=== PATIENT | male | born 1940 | race Caucasian/White ===

== ENCOUNTER 2024-10-09 11:03 | Emergency (ER) | payer OTHER ==
[~2024-10-09] VITALS: Ht 180.3 cm; Wt 72.7 kg
[~2024-10-09 11:03] MED LIST: ALLOPURINOL; METF-370; [UNRECOGNIZED DRUG - OTHER]
[2024-10-09 11:07] VITALS: BP 124/71; PULSE 96; RESP 18; O2SAT 100
[2024-10-09] MEDS: CLINDAMYCIN HCL 150 MG CAP PO ONE (16:06)
[2024-10-09] MEDS: FLUCONAZOLE 100 MG TAB PO ONE (16:07)
[2024-10-09] MEDS: DexAMETHasone SOD PHOS 10MG/1ML VIAL INJ IM ONE (16:08)
--- NOTE | 2024-10-09 16:11 | ED.PDOC ---
History of Present Illness(SKN HPI Comments 84 y.o male presents to the ED for a chief complaint of a generalized rash associated with pruritus that started 4-5 days ago s/p exposure. Patient reports developing this rash s/p his 's grand daughter came back from a vacation trip out of the country. Patient has scabs to bilateral lower legs and erythema all around. Patient denies any fever, chills, bleeding or abnormal discharge from wound scab areas. Patient is a poor historian, unable to collect medical history at this time. States he will not stay for admission at this time but wants to be medicated for the rash and pruritus. Chief Complaint: Lower Extremity Time Seen by MD: 15:50 Primary Care Provider: NONE History of Present Illness: Nurses Notes, Medications, Allergies Allergies: Coded Allergies: Clindamycin (Verified Allergy, Intermediate, 03/25/11) Latex (Verified Allergy, Intermediate, 03/25/11) Home Meds Reported Medications [Gemfivrozol] No Conflict Check 03/25/11 Metformin Hydrochloride (Metformin Hcl) 500 Mg Tab 03/25/11 [Allipurinal] No Conflict Check 03/25/11 Information Source: Patient Mode of Arrival: EMS Severity: Moderate Timing: Days (4-5) Duration: Since onset Location: Generalized Mechanism: Spontaneous Onset Developed: Rash Object: None History of: None Associated Signs and Symptoms: Redness Past Medical History PAST MEDICAL HISTORY: Unknown Surgical History: Unknown Family History Family History: Unknown Social History Smoker: Non-Smoker Alcohol: Denies ETOH Use Drugs: Denies Drug Use Lives In: Home Constitutional: denies: chills, diaphoresis, fatigue, fever, malaise, sweats, weakness, others EENTM: denies: blurred vision, double vision, ear bleeding, ear discharge, ear drainage, ear pain, ear ringing, eye pain, eye redness, hearing loss, mouth pain, mouth swelling, nasal discharge, nose bleeding, nose congestion, nose pain, photophobia, tearing, throat pain, throat swelling, voice changes, others Respiratory: denies: cough, hemoptysis, orthopnea, SOB at rest, shortness of breath, SOB with excertion, stridor, wheezing, others Cardiovascular: denies: chest pain, dizzy spells, diaphoresis, Dyspnea on exertion, edema, irregular heart beat, left arm pain, lightheadedness, palpitations, PND, syncope, others Gastrointestinal: denies: abdomen distended, abdominal pain, blood streaked bowels, constipated, diarrhea, dysphagia, difficulty swallowing, hematemesis, melena, nausea, poor appetite, poor fluid intake, rectal bleeding, rectal pain, vomiting, others Genitourinary: denies: burning, dysuria, flank pain, frequency, hematuria, incontinence, penile discharge, penile sore, pain, testicle pain, testicle swelling, urgency, others Neurological: denies: dizziness, fainting, headache, left sided numbness, left sided weakness, numbness, paresthesia, pre-existing deficit, right sided numbness, right sided weakness, seizure, speech problems, tingling, tremors, weakness, others Musculoskeletal: denies: back pain, gout, joint pain, joint swelling, muscle pain, muscle stiffness, neck pain, others Integumetry: reports: rash; denies: bruises, change in color, change in hair/nails, dryness, laceration, lesions, lumps, wounds, others Allergic/Immunocompromised: reports: Itching; denies: Difficulty Healing, Frequent Infections, Hives, others Hematologic/Lymphatic: denies: anemia, blood clots, easy bleeding, easy bruising, swollen glands, others Endocrine: denies: excessive hunger, excessive sweating, excessive thirst, excessive urination, flushing, intolerance to cold, intolerance to heat, unexplained weight gain, unexplained weight loss, others Psychiatric: denies: anxiety, bipolar disorder, depression, hopeless, panic disorder, schizophrenia, sleepless, suicidal, others All Other Systems: Reviewed and Negative Was a procedure done? Was a procedure done?: No Differential Diagnosis (INTG) Differential Diagnosis: Contact Dermatitis, Drug Reaction, Erythema multiforme, Rosacea, Scabies, Viral exanthema, Other (cutaneous larva migrans (CLM)) X-Ray, Labs, Meds, VS Vital Signs Date Time Temp Pulse Resp B/P (MAP) Pulse Ox O2 Delivery O2 Flow Rate FiO2 10/09/24 11:07 97.9 96 18 124/71 (88) 100 Time of 1ST Reevaluation: 16:04 Reevaluation 1ST: Unchanged Patient Education/Counseling: Diagnosis, Treatment, Prognosis Family Education/Counseling: No Family Present Critical Care Note Critical Care Time?: No Stability Stability form required: No I personally scribed for KEE MORENO PAC ([email or web address]) on 10/09/24 at 16:11. Electronically submitted by Aundrea Lunsford ([facility]). KEE MORENO PAC Oct 09, 2024 16:11
[2024-10-09 16:44] LABS: Basophils # (auto) 0 10 ^3/uL (0-0.2); Basophils % (auto) 0.6 % (0.0-2.0); Eosinophils # (auto) 0.1 10 ^3/uL (0-0.8); Eosinophils % (auto) 1.1 % (0.0-7.0); Hematocrit 38.5 % (41.0-53.0); Hemoglobin 12.1 g/dL (13.5-17.5); Lymphocytes # (auto) 1.2 10 ^3/uL (0.4-5.4); Lymphocytes % (auto) 19.3 % (10.0-50.0); Mean Corpuscular Hemoglobin 28.4 pg (28.0-32.0); Mean Corpuscular Hgb Conc. 31.4 g/dL (32.0-36.0); Mean Corpuscular Volume 90.5 fL (80.0-100.0); Monocytes # (auto) 0.4 10 ^3/uL (0-1.3); Monocytes % (auto) 6.9 % (0.0-12.0); Neutrophils # (auto) 4.6 10 ^3/uL (1.6-8.6); Neutrophils % (auto) 72.1 % (37.0-80.0); Nucleated Red Blood Cells % 0.1 %; Platelet Count (auto) 291 10^3/uL (140-450); Red Blood Cells 4.26 10^6/uL (4.5-5.90); White Blood Cell 6.4 10^3/uL (4.4-10.8)
[2024-10-09 17:10] LABS: Alanine Aminotransferase 20 U/L (7-40); Albumin 4.3 g/dL (3.2-4.8); Alkaline Phosphatase 73 U/L (46-116); Anion Gap 13 (5-15); Aspartate Aminotransferase 28 U/L (13-40); BUN/Creatinine Ratio 18.1 (10.0-20.0); Blood Urea Nitrogen 19 mg/dL (9-23); Calcium 9.5 mg/dL (8.7-10.4); Carbon Dioxide 20 mmol/L (20-31); Chloride 102 mmol/L (98-107); Potassium 4.7 mmol/L (3.5-5.1)
[2024-10-09 17:11] LABS: Bilirubin, Total 0.9 mg/dL (0.2-1.0); Total Protein 7.2 g/dL (5.7-8.2)
[2024-10-09 17:12] LABS: Glucose 203 mg/dL (74-106); Sodium 135 mmol/L (136-145)
[2024-10-09 17:16] LABS: Lactic Acid w/Reflex 2.5 mmol/L (0.4-2.0)
== END 2024-10-09 16:31 | disposition left against medical advice (07) ==
LOC: EDBD 11:03 → ER 11:03
DX: L29.9 Pruritus, unspecified (principal); R21 Rash and other nonspecific skin eruption; Z88.1 Allergy status to other antibiotic agents; Z88.8 Allergy status to other drugs, medicaments and biological substances
CPT/HCPCS: 36415; 80053; 83605; 85025; 87077; 87186; 87205; 96372; 99283; J1100

== ENCOUNTER 2024-11-01 15:55 | Emergency (ER) | payer OTHER ==
[2024-11-01] MEDS ORDERED: ACETAMINOPHEN 325 MG TAB PO ONE (16:15)
[2024-11-01] MEDS ORDERED: SULFAMETHOX W/TRIMETH(800/160MG) DS TAB PO ONE (16:15)
[2024-11-01] MEDS ORDERED: PERMETHRIN 5 % TOPICAL CREAM 60GM TOP ONE (16:15)
[2024-11-01 16:29] VITALS: BP 130/71; PULSE 88; RESP 18; O2SAT 95
--- NOTE | 2024-11-01 16:42 | ED.PDOC ---
History of Present Illness HPI Comments 84Y M presents to ED via EMS for chief complaint LLE rash [id number]. He did not want to answer any more questions and said, "you can either write me a pain script or fuck off". Chief Complaint: Rash Time Seen by MD: 16:00 Primary Care Provider: NONE Reviewed Notes: Nurses Notes, Medications, Allergies Allergies: Coded Allergies: Clindamycin (Verified Allergy, Intermediate, 03/25/11) Latex (Verified Allergy, Intermediate, 03/25/11) Home Meds Reported Medications [Gemfivrozol] No Conflict Check 03/25/11 Metformin Hydrochloride (Metformin Hcl) 500 Mg Tab 03/25/11 [Allipurinal] No Conflict Check 03/25/11 Information Source: Patient Mode of Arrival: EMS Severity: Mild Timing: Months Duration: Since onset Prehospital treatment: None Past Medical History PAST MEDICAL HISTORY: Unknown Surgical History: Unknown Family History Family History: Unknown Social History Smoker: Non-Smoker Alcohol: Denies ETOH Use Drugs: Denies Drug Use Lives In: Home Constitutional: denies: chills, diaphoresis, fatigue, fever, malaise, sweats, weakness, others EENTM: denies: blurred vision, double vision, ear bleeding, ear discharge, ear drainage, ear pain, ear ringing, eye pain, eye redness, hearing loss, mouth pain, mouth swelling, nasal discharge, nose bleeding, nose congestion, nose pain, photophobia, tearing, throat pain, throat swelling, voice changes, others Respiratory: denies: cough, hemoptysis, orthopnea, SOB at rest, shortness of breath, SOB with excertion, stridor, wheezing, others Cardiovascular: denies: chest pain, dizzy spells, diaphoresis, Dyspnea on exertion, edema, irregular heart beat, left arm pain, lightheadedness, palpitations, PND, syncope, others Gastrointestinal: denies: abdomen distended, abdominal pain, blood streaked bowels, constipated, diarrhea, dysphagia, difficulty swallowing, hematemesis, melena, nausea, poor appetite, poor fluid intake, rectal bleeding, rectal pain, vomiting, others Genitourinary: denies: burning, dysuria, flank pain, frequency, hematuria, incontinence, penile discharge, penile sore, pain, testicle pain, testicle swelling, urgency, others Neurological: denies: dizziness, fainting, headache, left sided numbness, left sided weakness, numbness, paresthesia, pre-existing deficit, right sided numbness, right sided weakness, seizure, speech problems, tingling, tremors, weakness, others Musculoskeletal: denies: back pain, gout, joint pain, joint swelling, muscle pain, muscle stiffness, neck pain, others Integumetry: reports: rash (LLE); denies: bruises, change in color, change in hair/nails, dryness, laceration, lesions, lumps, wounds, others Allergic/Immunocompromised: denies: Difficulty Healing, Frequent Infections, Hives, Itching, others Hematologic/Lymphatic: denies: anemia, blood clots, easy bleeding, easy bruising, swollen glands, others Endocrine: denies: excessive hunger, excessive sweating, excessive thirst, excessive urination, flushing, intolerance to cold, intolerance to heat, unexplained weight gain, unexplained weight loss, others Psychiatric: denies: anxiety, bipolar disorder, depression, hopeless, panic disorder, schizophrenia, sleepless, suicidal, others All Other Systems: Reviewed and Negative Physical Exam General Appearance: No Apparent Distress, Normal HEENT: Normal ENT Inspection, Pharynx Normal, TMs Normal Neck: Full Range of Motion, Non-Tender, Normal, Normal Inspection Respiratory: Chest Non-Tender, Lungs Clear, No Accessory Muscle Use, No Respiratory Distress, Normal Breath Sounds Cardiovascular: No Edema, No JVD, No Murmur, No Gallop, Normal Peripheral Pulses, Regular Rate/Rhythm Breast Exam: Deferred Gastrointestinal: No Organomegaly, Non Tender, No Pulsatile Mass, Normal Bowel Sounds, Soft Genitalia: Deferred Pelvic: Deferred Rectal: Deferred Extremities: No calf tenderness, Normal capillary refill, Normal inspection, Normal range of motion, Non-tender, No pedal edema Musculoskeletal : Apperance: Normal Neurologic: Alert, store gift wrap associate II-XII nml as Tested, No Motor Deficits, Normal Affect, Normal Mood, No Sensory Deficits Cerebellar Function: NOT DONE Reflexes: NOT DONE Skin: Other (LLE: erythema and flakiness) Lymphatic: No Adenopathy Was a procedure done? Was a procedure done?: No Differential Dx Considerations may include: cellulitis, venous insufficiency X-Ray, Labs, Meds, VS Vital Signs Date Time Temp Pulse Resp B/P (MAP) Pulse Ox O2 Delivery O2 Flow Rate FiO2 11/01/24 16:29 98.0 88 18 130/71 (90) 95 Time of 1ST Reevaluation: 16:15 Reevaluation 1ST: Unchanged Patient Education/Counseling: Diagnosis, Treatment Family Education/Counseling: No Family Present Departure 1 Departure Time of Disposition: 21:27 (Patient told me with the nurse that he was leaving and left) Impression: Primary Impression: Cellulitis of lower extremity Qualified Codes: L03.116 - Cellulitis of left lower limb Additional Impression: Combative behavior Disposition: 07 LEFT AWOL/ELOPED Condition: Serious Critical Care Note Critical Care Time?: No Stability Stability form required: No Heart Score Heart Score: Heart Score Response (Comments) Value History N/A 0 EKG N/A 0 Age N/A 0 Risk Factors N/A 0 Troponin N/A 0 Total 0 I personally scribed for MARIA DE JESUS PINON MD ([email or web address]) on 11/01/24 at 16:42. Electronically submitted by Grace Medel ([email or web address]). MARIA DE JESUS PINON MD Nov 01, 2024 16:42
== END 2024-11-01 16:26 | disposition left against medical advice (07) ==
LOC: ER 15:55 → EDBD 15:55 → ER 16:26
DX: L03.116 Cellulitis of left lower limb (principal); R46.89 Other symptoms and signs involving appearance and behavior; Z88.1 Allergy status to other antibiotic agents; Z91.040 Latex allergy status; Z79.899 Other long term (current) drug therapy

== ENCOUNTER 2024-12-30 10:39 | Emergency (ER) | payer OTHER ==
[~2024-12-30] VITALS: Ht 160 cm; Wt 76.0 kg
--- NOTE | 2024-12-30 13:15 | DVH ---
CHEST RADIOGRAPH Indication: sob Technique: Single frontal view of the chest was obtained Comparison: None FINDINGS: Lines and Tubes: None Lungs: No focal consolidation. Pleura: No effusion. No pneumothorax. Cardiomediastinal contours: Unremarkable Bones: No acute osseous abnormality. IMPRESSION: No acute cardiopulmonary disease. Hiatal hernia.
--- NOTE | 2024-12-30 14:25 | ED.PDOC ---
Musculoskeletal HPI Comments 84 year old male brought in by EMS presents to the ED with a chief complaint of bilateral leg swelling onset 2 weeks. Patient states he has been experiencing bilateral leg swelling, redness and pain for the past 2 weeks, believes his step-granddaughter brought an infection from [place]. Patient denies any PMHx as well as trauma, injury, headache, chest pain, shortness of breath, nausea, vomiting, diarrhea. No other symptoms or modifying factors present at this time. Chief Complaint: Extremity Swelling Time Seen by MD: 13:29 Primary Care Provider: NONE Reviewed Notes: Medications, Allergies Allergies: Coded Allergies: Clindamycin (Verified Allergy, Intermediate, 03/25/11) Latex (Verified Allergy, Intermediate, 03/25/11) Home Meds Reported Medications [Gemfivrozol] No Conflict Check 03/25/11 Metformin Hydrochloride (Metformin Hcl) 500 Mg Tab 03/25/11 [Allipurinal] No Conflict Check 03/25/11 Information Source: Patient, Emergency Med Personnel Mode of Arrival: EMS Location: Bilateral Extremity Location: Leg Timing: Weeks Prehospital treatment: None Severity: Moderate Able to Move Extremity: Yes Bear Weight: Fully Pain: Moderate Mechanism: Unknown Circumstances: Unknown Onset of Symptoms: Spontaneous Symptoms: Swelling, Pain, Erythema DVT Risk Factors: NONE Associated signs and symptoms: Swelling, Leg pain Past Medical History PAST MEDICAL HISTORY: Unknown Surgical History: Unknown Family History Family History: Unknown Social History Smoker: Non-Smoker Alcohol: Denies ETOH Use Drugs: Denies Drug Use Lives In: Home Constitutional: denies: chills, diaphoresis, fatigue, fever, malaise, sweats, weakness, others EENTM: denies: blurred vision, double vision, ear bleeding, ear discharge, ear drainage, ear pain, ear ringing, eye pain, eye redness, hearing loss, mouth pain, mouth swelling, nasal discharge, nose bleeding, nose congestion, nose pain, photophobia, tearing, throat pain, throat swelling, voice changes, others Respiratory: denies: cough, hemoptysis, orthopnea, SOB at rest, shortness of breath, SOB with excertion, stridor, wheezing, others Cardiovascular: denies: chest pain, dizzy spells, diaphoresis, Dyspnea on exertion, edema, irregular heart beat, left arm pain, lightheadedness, palpitations, PND, syncope, others Gastrointestinal: denies: abdomen distended, abdominal pain, blood streaked bowels, constipated, diarrhea, dysphagia, difficulty swallowing, hematemesis, melena, nausea, poor appetite, poor fluid intake, rectal bleeding, rectal pain, vomiting, others Genitourinary: denies: burning, dysuria, flank pain, frequency, hematuria, incontinence, penile discharge, penile sore, pain, testicle pain, testicle swelling, urgency, others Neurological: denies: dizziness, fainting, headache, left sided numbness, left sided weakness, numbness, paresthesia, pre-existing deficit, right sided numbness, right sided weakness, seizure, speech problems, tingling, tremors, weakness, others Musculoskeletal: reports: others (bilateral leg swelling, redness, pain); denies: back pain, gout, joint pain, joint swelling, muscle pain, muscle stiffness, neck pain Integumetry: denies: bruises, change in color, change in hair/nails, dryness, laceration, lesions, lumps, rash, wounds, others Allergic/Immunocompromised: denies: Difficulty Healing, Frequent Infections, Hives, Itching, others Hematologic/Lymphatic: denies: anemia, blood clots, easy bleeding, easy bruising, swollen glands, others Endocrine: denies: excessive hunger, excessive sweating, excessive thirst, excessive urination, flushing, intolerance to cold, intolerance to heat, unexplained weight gain, unexplained weight loss, others Psychiatric: denies: anxiety, bipolar disorder, depression, hopeless, panic disorder, schizophrenia, sleepless, suicidal, others All Other Systems: Reviewed and Negative Physical Exam General Appearance: No Apparent Distress, Normal HEENT: Normal ENT Inspection, Pharynx Normal, TMs Normal Neck: Full Range of Motion, Non-Tender, Normal, Normal Inspection Respiratory: Chest Non-Tender, Lungs Clear, No Accessory Muscle Use, No Respiratory Distress, Normal Breath Sounds Cardiovascular: No Edema, No JVD, No Murmur, No Gallop, Normal Peripheral Pulses, Regular Rate/Rhythm Breast Exam: Deferred Gastrointestinal: No Organomegaly, Non Tender, No Pulsatile Mass, Normal Bowel Sounds, Soft Genitalia: Deferred Pelvic: Deferred Rectal: Deferred Extremities: No calf tenderness, Normal capillary refill, Normal inspection, Normal range of motion, Non-tender, No pedal edema Musculoskeletal : Apperance: Normal Neurologic: Alert, 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 Was a procedure done?: No Differential Diagnosis EXT Differential Diagnosis: Cellulitis, Sprain X-Ray, Labs, Meds, VS Vital Signs Date Time Temp Pulse Resp B/P (MAP) Pulse Ox O2 Delivery O2 Flow Rate FiO2 12/30/24 15:15 98.0 90 20 126/70 (88) 98 98.0 12/30/24 10:50 98.2 92 16 115/70 (85) 96 Lab Test 12/30/24 14:52 Range/Units White Blood Count 6.4 4.4-10.8 10^3/uL Red Blood Count 5.07 4.5-5.90 10^6/uL Hemoglobin 14.7 13.5-17.5 g/dL Hematocrit 43.6 41.0-53.0 % Mean Corpuscular Volume 86.0 80.0-100.0 fL Mean Corpuscular Hemoglobin 29.0 28.0-32.0 pg Mean Corpuscular Hemoglobin Concent 33.7 32.0-36.0 g/dL Red Cell Distribution Width 15.2 H 11.8-14.3 % Platelet Count 263 140-450 10^3/uL Mean Platelet Volume 7.7 6.9-10.8 fL Neutrophils (%) (Auto) 69.8 37.0-80.0 % Lymphocytes (%) (Auto) 20.6 10.0-50.0 % Monocytes (%) (Auto) 7.3 0.0-12.0 % Eosinophils (%) (Auto) 1.6 0.0-7.0 % Basophils (%) (Auto) 0.7 0.0-2.0 % Neutrophils # (Auto) 4.5 1.6-8.6 10 ^3/uL Lymphocytes # (Auto) 1.3 0.4-5.4 10 ^3/uL Monocytes # (Auto) 0.5 0-1.3 10 ^3/uL Eosinophils # (Auto) 0.1 0-0.8 10 ^3/uL Basophils # (Auto) 0 0-0.2 10 ^3/uL Nucleated Red Blood Cells 0.1 % Sodium Level 137 136-145 mmol/L Potassium Level 4.6 3.5-5.1 mmol/L Chloride Level 102 98-107 mmol/L Carbon Dioxide Level 26 20-31 mmol/L Anion Gap 9 5-15 Blood Urea Nitrogen 21 9-23 mg/dL Creatinine 1.09 0.700-1.30 mg/dL Glomerular Filtration Rate Calc 66 >90 mL/min BUN/Creatinine Ratio 19.3 10.0-20.0 Serum Glucose 267 H 74-106 mg/dL Calcium Level 10.3 8.7-10.4 mg/dL Troponin I High Sensitivity < 3 L </=54 ng/L B-Type Natriuretic Peptide Pending Current Medications Medications (Trade) Dose Ordered Sig/Vera Route Start Time Stop Time Status Last Admin Vancomycin HCl 200 ml @ 200 mls/hr ONCE ONCE IV 12/30/24 14:15 12/30/24 15:14 DC 12/30/24 15:20 [place] [address] Ph: [phone] DIAGNOSTIC IMAGING Diagnostic Imaging Report : [id number] Signed PATIENT: ANITA WILLSON ACCT: [id number] UNIT: [id number] : 1940 LOC: ER ROOM / BED: / AGE / SEX: 84 / M ADM STATUS: REG ER SERVICE 1254 ORDERING PHYSICIAN: MARIA DE JESUS PINON MD PROCEDURE(s): CXRP - CHEST PORTABLE REASON: sob ORDER NUMBER(s): [id number], ACCESSION NUMBER(s): [id number] CHEST RADIOGRAPH Indication: sob Technique: Single frontal view of the chest was obtained Comparison: None FINDINGS: Lines and Tubes: None Lungs: No focal consolidation. Pleura: No effusion. No pneumothorax. Cardiomediastinal contours: Unremarkable Bones: No acute osseous abnormality. IMPRESSION: No acute cardiopulmonary disease. Hiatal hernia. ATED BY: LATRICIA NAIK MD DICTATED DATE/TIME: 12/30/24 1312 SIGNED BY: LATRICIA NAIK MD SIGNED DATE/TIME: 12/30/24 1312 CC: Time of 1ST Reevaluation: 13:59 Reevaluation 1ST: Unchanged Patient Education/Counseling: Diagnosis, Treatment, Prognosis Family Education/Counseling: No Family Present Additional Information The following tests were ordered, and results were reviewed by me: BMP, BNP, CBC, TROP -x3, XY CHEST Additional Information was gathered from interviewing the following independent historians: EMS I reviewed and agreed with the following test results read by other providers: XY CHEST I discussed treatment and results with medical personnel and: patient Departure 1 Departure Time of Disposition: 15:44 (Patient likely with cellulitis. We will discharge patient home with antibiotics and outpatient follow up.) Impression: Primary Impression: Cellulitis of lower extremity Qualified Codes: L03.119 - Cellulitis of unspecified part of limb Disposition: HOME / SELF CARE / HOMELESS Condition: Stable Additional Instructions: You have cellulitis. This is a skin infection. You were prescribed antibiotics. Please take as directed. You can take tylenol and motrin as needed for pain. It is important that you follow up with your regular doctor within one week to ensure you are doing well. If your symptoms worsen or you have any other concerns then please return to the ER. e-Prescriptions Sulfamethoxazole W/Trimethopri (Bactrim Ds Tablet) 1 Tab Tb 1 TAB PO BID for 7 Days, #14 TAB Prov: MARIA DE JESUS PINON MD 12/30/24 Discharged With: Self Critical Care Note Critical Care Time?: No Stability Stability form required: No I personally scribed for MARIA DE JESUS PINON MD ([email or web address]) on 12/30/24 at 14:25. Electronically submitted by Margo Kate ([email or web address]). I personally scribed for MARIA DE JESUS PINON MD ([email or web address]) on 12/30/24 at 14:46. Electronically submitted by Margo Kate ([email or web address]). MARIA DE JESUS PINON MD Dec 30, 2024 14:25
[2024-12-30 15:15] VITALS: BP 126/70; PULSE 90; RESP 20; TEMP 98; O2SAT 98
[2024-12-30 15:19] LABS: Basophils # (auto) 0 10 ^3/uL (0-0.2); Basophils % (auto) 0.7 % (0.0-2.0); Eosinophils # (auto) 0.1 10 ^3/uL (0-0.8); Eosinophils % (auto) 1.6 % (0.0-7.0); Hematocrit 43.6 % (41.0-53.0); Hemoglobin 14.7 g/dL (13.5-17.5); Lymphocytes # (auto) 1.3 10 ^3/uL (0.4-5.4); Lymphocytes % (auto) 20.6 % (10.0-50.0); Mean Corpuscular Hgb Conc. 33.7 g/dL (32.0-36.0); Monocytes # (auto) 0.5 10 ^3/uL (0-1.3); Monocytes % (auto) 7.3 % (0.0-12.0); Neutrophils # (auto) 4.5 10 ^3/uL (1.6-8.6); Neutrophils % (auto) 69.8 % (37.0-80.0); Nucleated Red Blood Cells % 0.1 %; Platelet Count (auto) 263 10^3/uL (140-450); Red Blood Cells 5.07 10^6/uL (4.5-5.90); Red Cell Distribution Width 15.2 % (11.8-14.3); White Blood Cell 6.4 10^3/uL (4.4-10.8)
[2024-12-30] MEDS: VANCOMYCIN 1GM/250ML KIT 200 ML IV ONE (15:20)
[2024-12-30 15:31] LABS: Chloride 102 mmol/L (98-107); Potassium 4.6 mmol/L (3.5-5.1); Sodium 137 mmol/L (136-145)
[2024-12-30 15:32] LABS: Anion Gap 9 (5-15); Carbon Dioxide 26 mmol/L (20-31)
[2024-12-30 15:33] LABS: Calcium 10.3 mg/dL (8.7-10.4)
[2024-12-30 15:37] LABS: BUN/Creatinine Ratio 19.3 (10.0-20.0); Blood Urea Nitrogen 21 mg/dL (9-23)
[2024-12-30 15:40] LABS: Glucose 267 mg/dL (74-106)
[2024-12-30] MEDS ORDERED: BACDST PO (15:44)
== END 2024-12-30 17:32 | disposition home or self-care (01) ==
LOC: EDBD 10:39 → ER 10:39
DX: L03.119 Cellulitis of unspecified part of limb (principal); Z91.040 Latex allergy status; Z88.1 Allergy status to other antibiotic agents
CPT/HCPCS: 36415; 71045; 80048; 82947; 83880; 84484; 85025; 96365; 99284; J3370

== ENCOUNTER 2025-05-06 08:44 | Emergency (ER) | payer OTHER ==
[~2025-05-06 08:44] MED LIST changes: +BACDST PO
== END 2025-05-06 10:39 | disposition left against medical advice (07) ==
LOC: ER 08:44 → EDBD 08:44 → ER 10:39
DX: M79.606 Pain in leg, unspecified (principal); Z53.21 Procedure and treatment not carried out due to patient leaving prior to being seen by health care provider

== ENCOUNTER 2025-09-07 14:14 | Emergency (ER) | payer OTHER ==
[~2025-09-07] VITALS: Ht 185.4 cm; Wt 82.0 kg
[2025-09-07 14:17] VITALS: BP 111/62; PULSE 75; RESP 18; TEMP 97.6; O2SAT 97
--- NOTE | 2025-09-07 15:02 | ED.PDOC ---
History of Present Illness(SKN HPI Comments 85-year-old male that presents to the ED for chief complaint of rash. Patient that he has been having itchiness to the upper bilateral extremities for the past three four days. The patient denies any new detergents soaps or any new medications. The patient otherwise has stable vitals in the ED. Patient otherwise denies any other symptoms. Chief Complaint: Rash Time Seen by MD: 15:04 Primary Care Provider: NONE History of Present Illness: Medications, Allergies Allergies: Coded Allergies: Clindamycin (Verified Allergy, Intermediate, 03/25/11) Latex (Verified Allergy, Intermediate, 03/25/11) Home Meds Active Scripts Triamcinolone Acetonide (Triamcinolone Acetonide) 0.1 % Cre, 1 APPLIC EX BID for 7 Days, #30 GRAMS 0 Refills Prov:JEANINE PAEZ NP 09/07/25 Methylprednisolone (Medrol Dosepak) 4 Mg Fab, 4 MG PO UD for 7 Days, #21 TAB 0 Refills UAD Prov:JEANINE PAEZ NP 09/07/25 Cephalexin Monohydrate (Cephalexin) 500 Mg Cap, 1 CAP PO QID for 7 Days, #28 CAP 0 Refills Prov:JEANINE PAEZ NP 09/07/25 Sulfamethoxazole W/Trimethopri (Bactrim Ds Tablet) 1 Tab Tb, 1 TAB PO BID for 7 Days, #14 TAB Prov:MARIA DE JESUS PINON MD 12/30/24 Reported Medications [Gemfivrozol] No Conflict Check 03/25/11 Metformin Hydrochloride (Metformin Hcl) 500 Mg Tab 03/25/11 [Allipurinal] No Conflict Check 03/25/11 Information Source: Patient Mode of Arrival: EMS Brought in by: Self Past Medical History PAST MEDICAL HISTORY: Unknown Surgical History: Unknown Family History Family History: Unknown Social History Smoker: Non-Smoker Alcohol: Denies ETOH Use Drugs: Denies Drug Use Lives In: Home Constitutional: denies: chills, diaphoresis, fatigue, fever, malaise, sweats, weakness, others EENTM: denies: blurred vision, double vision, ear bleeding, ear discharge, ear drainage, ear pain, ear ringing, eye pain, eye redness, hearing loss, mouth pain, mouth swelling, nasal discharge, nose bleeding, nose congestion, nose pain, photophobia, tearing, throat pain, throat swelling, voice changes, others Respiratory: denies: cough, hemoptysis, orthopnea, SOB at rest, shortness of breath, SOB with excertion, stridor, wheezing, others Cardiovascular: denies: chest pain, dizzy spells, diaphoresis, Dyspnea on exertion, edema, irregular heart beat, left arm pain, lightheadedness, palpitations, PND, syncope, others Gastrointestinal: denies: abdomen distended, abdominal pain, blood streaked bowels, constipated, diarrhea, dysphagia, difficulty swallowing, hematemesis, melena, nausea, poor appetite, poor fluid intake, rectal bleeding, rectal pain, vomiting, others Genitourinary: denies: burning, dysuria, flank pain, frequency, hematuria, incontinence, penile discharge, penile sore, pain, testicle pain, testicle swelling, urgency, others Neurological: denies: dizziness, fainting, headache, left sided numbness, left sided weakness, numbness, paresthesia, pre-existing deficit, right sided numbness, right sided weakness, seizure, speech problems, tingling, tremors, weakness, others Musculoskeletal: denies: back pain, gout, joint pain, joint swelling, muscle pain, muscle stiffness, neck pain, others Integumetry: reports: rash (Bilateral upper extremities); denies: bruises, change in color, change in hair/nails, dryness, laceration, lesions, lumps, wounds, others Allergic/Immunocompromised: denies: Difficulty Healing, Frequent Infections, Hives, Itching, others Hematologic/Lymphatic: denies: anemia, blood clots, easy bleeding, easy bruising, swollen glands, others Endocrine: denies: excessive hunger, excessive sweating, excessive thirst, excessive urination, flushing, intolerance to cold, intolerance to heat, unexplained weight gain, unexplained weight loss, others Psychiatric: denies: anxiety, bipolar disorder, depression, hopeless, panic disorder, schizophrenia, sleepless, suicidal, others All Other Systems: Reviewed and Negative Physical Exam General Appearance: No Apparent Distress, Normal HEENT: Normal ENT Inspection, Pharynx Normal, TMs Normal Neck: Full Range of Motion, Non-Tender, Normal, Normal Inspection Respiratory: Chest Non-Tender, Lungs Clear, No Accessory Muscle Use, No Respiratory Distress, Normal Breath Sounds Cardiovascular: No Edema, No JVD, No Murmur, No Gallop, Normal Peripheral Pulses, Regular Rate/Rhythm Breast Exam: Deferred Gastrointestinal: No Organomegaly, Non Tender, No Pulsatile Mass, Normal Bowel Sounds, Soft Genitalia: Deferred Pelvic: Deferred Rectal: Deferred Extremities: No calf tenderness, Normal capillary refill, Normal inspection, Normal range of motion, Non-tender, No pedal edema Musculoskeletal : Apperance: Normal Neurologic: Alert, data processing auditor II-XII nml as Tested, No Motor Deficits, Normal Affect, Normal Mood, No Sensory Deficits Cerebellar Function: Normal Reflexes: Normal Skin: Other (Maculopapular rash to upper bilateral extremities excoriations to left forearm no discharge) Lymphatic: No Adenopathy Was a procedure done? Was a procedure done?: No Differential Diagnosis (INTG) Differential Diagnosis: Atopic dermatitis, Contact Dermatitis, Urticaria, Viral exanthema X-Ray, Labs, Meds, VS Vital Signs Date Time Temp Pulse Resp B/P (MAP) Pulse Ox O2 Delivery O2 Flow Rate FiO2 09/07/25 14:17 97.6 75 18 111/62 97 97.6 Lab Test 09/07/25 15:36 09/07/25 15:34 09/07/25 15:12 Range/Units White Blood Count 7.8 4.4-10.8 10^3/uL Red Blood Count 4.72 4.5-5.90 10^6/uL Hemoglobin 13.6 13.5-17.5 g/dL Hematocrit 39.7 L 41.0-53.0 % Mean Corpuscular Volume 84.1 80.0-100.0 fL Mean Corpuscular Hemoglobin 28.8 28.0-32.0 pg Mean Corpuscular Hemoglobin Concent 34.3 32.0-36.0 g/dL Red Cell Distribution Width 15.1 H 11.8-14.3 % Platelet Count 307 140-450 10^3/uL Mean Platelet Volume 7.4 6.9-10.8 fL Neutrophils (%) (Auto) 69.6 37.0-80.0 % Lymphocytes (%) (Auto) 17.9 10.0-50.0 % Monocytes (%) (Auto) 8.7 0.0-12.0 % Eosinophils (%) (Auto) 2.9 0.0-7.0 % Basophils (%) (Auto) 0.9 0.0-2.0 % Neutrophils # (Auto) 5.4 1.6-8.6 10 ^3/uL Lymphocytes # (Auto) 1.4 0.4-5.4 10 ^3/uL Monocytes # (Auto) 0.7 0-1.3 10 ^3/uL Eosinophils # (Auto) 0.2 0-0.8 10 ^3/uL Basophils # (Auto) 0.1 0-0.2 10 ^3/uL Nucleated Red Blood Cells 0.0 % Sodium Level 136 136-145 mmol/L Potassium Level 4.2 3.5-5.1 mmol/L Chloride Level 101 98-107 mmol/L Carbon Dioxide Level 25 20-31 mmol/L Anion Gap 10 5-15 Blood Urea Nitrogen 13 9-23 mg/dL Creatinine 1.16 0.700-1.30 mg/dL Glomerular Filtration Rate Calc 61 >90 mL/min BUN/Creatinine Ratio 11.2 10.0-20.0 Serum Glucose 233 H 74-106 mg/dL Calcium Level 9.5 8.7-10.4 mg/dL Urine Color Yellow Yellow Urine Clarity Clear Clear Urine pH 6.5 5.0-9.0 Urine Specific [place] 1.022 1.001-1.035 Urine Protein Trace H Negative Urine Ketones Negative Negative Urine Blood Negative Negative /uL Urine Nitrite Negative Negative Urine Bilirubin Negative Negative Urine Urobilinogen Normal Negative mg/dL Urine Leukocyte Esterase Negative Negative /uL Urine RBC <1 0 - 3 /hpf Urine Microscopic WBC < 1 0-3 /HPF Urine Squamous Epithelial Cells None seen <5 /hpf Urine Transitional Epithelial Cells Few <2 /hpf Urine Bacteria None seen None Seen /hpf Urine Mucus Few None Seen Urine Glucose Normal Normal mg/dL POC Glucose 245 H 70-106 mg/dl X-Ray, Labs, Meds, VS Comment Patient arrives alert and oriented, ABC's intact, afebrile, vital signs stable, saturating well in room air Additional MDM Review of External, Non-ED records: External records reviewed. Discussion with independent historian (EMS, family) history obtained from the patient/parents (if applicable) at bedside Chronic conditions affecting care: None Social determinants of health affecting care: None Consideration of admission (observation or admission): I considered escalation of care to admission for this patient, however given the reassuring workup, the patient is safe for outpatient management. Discussion with the Radiology: No Tests considered but not performed: Prescription medication considered but not given: 12 lead EKG interpretation: Time of 1ST Reevaluation: 15:40 Reevaluation 1ST: Unchanged Patient Education/Counseling: Diagnosis, Treatment Family Education/Counseling: No Family Present SEPSIS Sepsis Screen Date sepsis recognized/suspect: Sep 07, 2025 Time Sepsis recognized/suspect: 142 Recent Procedure: No On Antibiotic Therapy: No Respiratory Rate >20: No Heart Rate >90: No Temp<36 C (96.8 F) or >38.3 C: No SBP <90 or MAP <65 mmHG: No New Acute Mental Status Change: No Is the patient on CPAP, BIPAP,: No Vital Signs Date Time Temp Pulse Resp B/P (MAP) Pulse Ox O2 Delivery O2 Flow Rate FiO2 09/07/25 14:17 97.6 75 18 111/62 97 97.6 Laboratory Tests Test 09/07/25 15:36 White Blood Count 7.8 10^3/uL (4.4-10.8) Departure 1 Departure Time of Disposition: 16:15 Impression: Primary Impression: Dermatitis Disposition: HOME / SELF CARE / HOMELESS Condition: Stable e-Prescriptions Triamcinolone Acetonide (Triamcinolone Acetonide) 0.1 % Cre 1 APPLIC EX BID for 7 Days, #30 GRAMS 0 Refills Prov: JEANINE PAEZ [employer] 09/07/25 Methylprednisolone (Medrol Dosepak) 4 Mg Fab 4 MG PO UD for 7 Days, #21 TAB 0 Refills UAD Prov: JEANINE PAEZ NP 09/07/25 Cephalexin Monohydrate (Cephalexin) 500 Mg Cap 1 CAP PO QID for 7 Days, #28 CAP 0 Refills Prov: JEANINE PAEZ NP 09/07/25 Discharged With: Self Critical Care Note Critical Care Time?: No Stability Stability form required: No Heart Score Heart Score: Heart Score Response (Comments) Value History N/A 0 EKG N/A 0 Age N/A 0 Risk Factors N/A 0 Troponin N/A 0 Total 0 I personally scribed for JEANINE PAEZ NP ([email or web address]) on 09/07/25 at 15:02. Electronically submitted by Misael HUBBARD). I personally scribed for JEANINE PAEZ NP ([email or web address]) on 09/07/25 at 15:06. Electronically submitted by Misael Guzman ([email or web address]). I personally scribed for JEANINE PAEZ NP ([email or web address]) on 09/07/25 at 15:07. Electronically submitted by Misael Guzman ([email or web address]). JEANINE PAEZ NP Sep 07, 2025 15:02
[2025-09-07] MEDS ORDERED: TRIO1TP EX (15:05)
[2025-09-07] MEDS ORDERED: CEPH500C PO (15:05)
[2025-09-07] MEDS ORDERED: METH4PAK PO (15:05)
[2025-09-07 15:49] LABS: Urine Protein, UAD TRACE (Negative)
[2025-09-07 15:58] LABS: Hematocrit 39.7 % (41.0-53.0); Hemoglobin 13.6 g/dL (13.5-17.5); Mean Corpuscular Hemoglobin 28.8 pg (28.0-32.0); Mean Corpuscular Volume 84.1 fL (80.0-100.0); Nucleated Red Blood Cells % 0.0 %
[2025-09-07 16:02] LABS: Chloride 101 mmol/L (98-107); Potassium 4.2 mmol/L (3.5-5.1); Sodium 136 mmol/L (136-145)
[2025-09-07 16:03] LABS: Anion Gap 10 (5-15); Carbon Dioxide 25 mmol/L (20-31)
[2025-09-07 16:04] LABS: Calcium 9.5 mg/dL (8.7-10.4)
[2025-09-07 16:08] LABS: BUN/Creatinine Ratio 11.2 (10.0-20.0); Blood Urea Nitrogen 13 mg/dL (9-23)
[2025-09-07 16:10] LABS: Glucose 233 mg/dL (74-106)
== END 2025-09-07 17:48 | disposition home or self-care (01) ==
LOC: EDUNIT# 14:14 → ER 14:14 → EDBD 14:14 → ER 17:47
DX: L30.9 Dermatitis, unspecified (principal); Z88.1 Allergy status to other antibiotic agents; Z91.040 Latex allergy status; Z79.84 Long term (current) use of oral hypoglycemic drugs; Z79.899 Other long term (current) drug therapy
CPT/HCPCS: 36415; 80048; 81001; 82947; 82962; 85025